=== PATIENT | male | born 1950 | race Caucasian/White ===

== ENCOUNTER → 2016-06-13 | Outpatient (REF) | payer MEDICARE, BC ==
[~2016-06-13] MED LIST: /ADVA50050 IN; /GLYB5TA OR; /MOXI40TA OR; /PANT40TA OR; /TIOT18INH INH; ACET65TA OR; ALBUTEROL INH; AZELASTINE; HYDR25TA6 OR; LASI40TA OR; LISI40TA OR; METF500T4 OR; PRED20TA OR; SIMV40TA2 OR
[2016-06-13 12:19] LABS: ALBUMIN 3.7 GM/DL (3.2-5.2); ALBUMIN/GLOBULIN RATIO 1.19 (1.00-1.93); ALKALINE PHOSPHATASE 83 U/L (45-117); ALT/SGPT 58 U/L (12-78); ANION GAP 11 MEQ/L (8-16); AST/SGOT 38 U/L (15-37); BILIRUBIN,TOTAL 0.4 MG/DL (0.2-1.0); BLOOD UREA NITROGEN 18 MG/DL (7-18); CALCIUM LEVEL 8.9 MG/DL (8.8-10.2); CARBON DIOXIDE LEVEL 25 MEQ/L (21-32); CHLORIDE LEVEL 107 MEQ/L (98-107); CHOLESTEROL LEVEL 114 MG/DL (<200); GLOMERULAR FILTRATION RATE > 60.0 (>49); GLUCOSE, FASTING 163 MG/DL (80-110); POTASSIUM SERUM 3.7 MEQ/L (3.5-5.1); SODIUM LEVEL 143 MEQ/L (136-145); TOTAL PROTEIN 6.8 GM/DL (6.4-8.2); TRIGLYCERIDES LEVEL 164 MG/DL (<150)
== END ==
LOC: M SFHCPLAZ 07:46
PROVIDERS: ATTEND Physician Assistant
DX: E11.65 Type 2 diabetes mellitus with hyperglycemia (principal); E78.4 Other hyperlipidemia; Z12.5 Encounter for screening for malignant neoplasm of prostate; E55.9 Vitamin D deficiency, unspecified
CPT/HCPCS: 36415; 80053; 80061; 82043; 82306; 83036; G0103

== ENCOUNTER → 2016-09-20 | Outpatient (REF) | payer MEDICARE, BC ==
[2016-09-20 11:25] LABS: ALBUMIN 3.9 GM/DL (3.2-5.2); ALBUMIN/GLOBULIN RATIO 1.34 (1.00-1.93); ALKALINE PHOSPHATASE 88 U/L (45-117); ALT/SGPT 72 U/L (12-78); ANION GAP 11 MEQ/L (8-16); AST/SGOT 59 U/L (15-37); BILIRUBIN,TOTAL 0.4 MG/DL (0.2-1.0); BLOOD UREA NITROGEN 23 MG/DL (7-18); CALCIUM LEVEL 9.7 MG/DL (8.8-10.2); CARBON DIOXIDE LEVEL 27 MEQ/L (21-32); CHLORIDE LEVEL 105 MEQ/L (98-107); CREATININE FOR GFR 1.13 MG/DL (0.70-1.30); GLOMERULAR FILTRATION RATE > 60.0 (>49); GLUCOSE, FASTING 172 MG/DL (80-110); SODIUM LEVEL 143 MEQ/L (136-145); TOTAL PROTEIN 6.8 GM/DL (6.4-8.2)
== END ==
LOC: M SFHCPLAZ 08:07
PROVIDERS: ATTEND Physician Assistant
DX: E11.65 Type 2 diabetes mellitus with hyperglycemia (principal)

== ENCOUNTER → 2017-04-11 | Outpatient (REF) | payer BC, MEDICARE, MEDICAID ==
[2017-04-11 13:06] LABS: MEAN CORPUSCULAR HGB CONC 32.4 g/dl (32.0-36.5); MEAN CORPUSCULAR VOLUME 86.3 fl (80.0-96.0); PLATELET COUNT, AUTOMATED 133 10^3/uL (150-450); RED CELL DISTRIBUTION WIDTH 13.7 % (11.5-14.5); WHITE BLOOD COUNT 6.6 10^3/uL (4.0-10.0)
[2017-04-11 13:43] LABS: ALBUMIN 3.9 GM/DL (3.2-5.2); ALBUMIN/GLOBULIN RATIO 1.22 (1.00-1.93); ALKALINE PHOSPHATASE 85 U/L (45-117); ALT/SGPT 64 U/L (12-78); ANION GAP 10 MEQ/L (8-16); AST/SGOT 62 U/L (7-37); BILIRUBIN,TOTAL 0.6 MG/DL (0.2-1.0); BLOOD UREA NITROGEN 13 MG/DL (7-18); CALCIUM LEVEL 8.7 MG/DL (8.8-10.2); CARBON DIOXIDE LEVEL 26 MEQ/L (21-32); CHLORIDE LEVEL 106 MEQ/L (98-107); CHOLESTEROL LEVEL 146 MG/DL (<200); CREATININE FOR GFR 1.05 MG/DL (0.70-1.30); FREE T4 1.01 NG/DL (0.76-1.46); GLOMERULAR FILTRATION RATE > 60.0 (>49); GLUCOSE, FASTING 207 MG/DL (80-110); SODIUM LEVEL 142 MEQ/L (136-145); TOTAL PROTEIN 7.1 GM/DL (6.4-8.2); TRIGLYCERIDES LEVEL 210 MG/DL (<150)
== END ==
LOC: M SFHCADAM 09:29
PROVIDERS: ATTEND Family Medicine
DX: E78.5 Hyperlipidemia, unspecified (principal); E11.65 Type 2 diabetes mellitus with hyperglycemia; J44.9 Chronic obstructive pulmonary disease, unspecified

== ENCOUNTER → 2017-08-02 | Outpatient (REF) | payer BC, MEDICARE, MEDICAID ==
[2017-08-02 21:18] LABS: ANION GAP 8 MEQ/L (8-16); BLOOD UREA NITROGEN 23 MG/DL (7-18); CALCIUM LEVEL 9.6 MG/DL (8.8-10.2); CARBON DIOXIDE LEVEL 25 MEQ/L (21-32); CHLORIDE LEVEL 109 MEQ/L (98-107); CREATININE FOR GFR 1.25 MG/DL (0.70-1.30); GLOMERULAR FILTRATION RATE > 60.0 (>49); GLUCOSE, FASTING 172 MG/DL (70-100); SODIUM LEVEL 142 MEQ/L (136-145)
[2017-08-02 21:53] LABS: ESTIMATED AVERAGE GLUCOSE 212 MG/DL (60-110)
== END ==
LOC: M SFHCADAM 20:35
DX: E11.65 Type 2 diabetes mellitus with hyperglycemia (principal)
CPT/HCPCS: 83036

== ENCOUNTER → 2017-11-14 | Outpatient (REF) | payer BC, MEDICARE, MEDICAID ==
[2017-11-14 13:07] LABS: ANION GAP 9 MEQ/L (8-16); BLOOD UREA NITROGEN 21 MG/DL (7-18); CALCIUM LEVEL 9.2 MG/DL (8.8-10.2); CARBON DIOXIDE LEVEL 24 MEQ/L (21-32); CHLORIDE LEVEL 107 MEQ/L (98-107); CREATININE FOR GFR 1.12 MG/DL (0.70-1.30); GLOMERULAR FILTRATION RATE > 60.0 (>49); GLUCOSE, FASTING 145 MG/DL (70-100); POTASSIUM SERUM 4.6 MEQ/L (3.5-5.1); SODIUM LEVEL 140 MEQ/L (136-145)
[2017-11-14 14:31] LABS: MALB URINE SIEMENS 17.4 MG/L
[2017-11-14 16:11] LABS: ESTIMATED AVERAGE GLUCOSE 174 MG/DL (60-110); HEMOGLOBIN A1c 7.7 %
== END ==
LOC: M SFHCADAM 09:34
DX: E11.65 Type 2 diabetes mellitus with hyperglycemia (principal)
CPT/HCPCS: 83036

== ENCOUNTER → 2018-04-23 | Outpatient (REF) | payer MEDICARE, MEDICAID ==
[2018-04-23 20:02] LABS: ALBUMIN 4.1 GM/DL (3.2-5.2); ALT/SGPT 40 U/L (12-78); BILIRUBIN,TOTAL 0.4 MG/DL (0.2-1.0); BLOOD UREA NITROGEN 23 MG/DL (7-18); CALCIUM LEVEL 9.3 MG/DL (8.8-10.2); CARBON DIOXIDE LEVEL 24 MEQ/L (21-32); CHLORIDE LEVEL 105 MEQ/L (98-107); CHOLESTEROL LEVEL 165 MG/DL (<200); CHOLESTEROL RISK RATIO 5.156 (<5); CREATININE FOR GFR 1.19 MG/DL (0.70-1.30); GLOMERULAR FILTRATION RATE > 60.0 (>49); GLUCOSE, FASTING 138 MG/DL (70-100); HDL CHOLESTEROL 32 MG/DL (>40); HEMATOCRIT 47.2 % (42.0-52.0); MEAN CORPUSCULAR HEMOGLOBIN 26.1 pg (27.0-33.0); MEAN CORPUSCULAR HGB CONC 31.8 g/dl (32.0-36.5); MEAN CORPUSCULAR VOLUME 82.2 fl (80.0-96.0); NON-HDL-C 133 MG/DL; PLATELET COUNT, AUTOMATED 190 10^3/uL (150-450); POTASSIUM SERUM 4.1 MEQ/L (3.5-5.1); RED BLOOD COUNT 5.74 10^6/uL (4.30-6.10); SODIUM LEVEL 140 MEQ/L (136-145); TOTAL PROTEIN 7.7 GM/DL (6.4-8.2); TRIGLYCERIDES LEVEL 538 MG/DL (<150); URIC ACID 4.6 MG/DL (3.5-7.2); WHITE BLOOD COUNT 8.8 10^3/uL (4.0-10.0)
[2018-04-23 20:20] LABS: MALB URINE SIEMENS 28.7 MG/L; MAU/CREAT RATIO 14.8 MCG/MG (0.0-30.0)
[2018-04-23 20:28] LABS: HEMOGLOBIN A1c 8.4 %
== END ==
LOC: M SFHCADAM 13:27
PROVIDERS: ATTEND Family Medicine
DX: J44.9 Chronic obstructive pulmonary disease, unspecified (principal); E11.65 Type 2 diabetes mellitus with hyperglycemia; E78.5 Hyperlipidemia, unspecified; M1A.9XX0 Chronic gout, unspecified, without tophus (tophi)

== ENCOUNTER → 2018-07-24 | Outpatient (REF) | payer MEDICARE, MEDICAID ==
[2018-07-24 13:51] LABS: HEMOGLOBIN A1c 8.1 %
[2018-07-24 13:56] LABS: BLOOD UREA NITROGEN 26 MG/DL (7-18); CALCIUM LEVEL 9.4 MG/DL (8.8-10.2); CARBON DIOXIDE LEVEL 23 MEQ/L (21-32); CHLORIDE LEVEL 107 MEQ/L (98-107); CREATININE FOR GFR 1.12 MG/DL (0.70-1.30); GLOMERULAR FILTRATION RATE > 60.0 (>49); GLUCOSE, FASTING 206 MG/DL (70-100); POTASSIUM SERUM 4.3 MEQ/L (3.5-5.1); SODIUM LEVEL 140 MEQ/L (136-145)
== END ==
LOC: M SFHCADAM 10:15
PROVIDERS: ATTEND Family Medicine
DX: E11.65 Type 2 diabetes mellitus with hyperglycemia (principal)

== ENCOUNTER 2018-10-28 09:52 | Inpatient (IN) | payer MEDICAID, MEDICARE ==
[~2018-10-28] VITALS: Ht 170.2 cm; Wt 133.4 kg
[2018-10-28] VITALS (9 sets, daily range): BP systolic 107–139; BP diastolic 53–80; O2SAT 83–94
[~2018-10-28 09:52] MED LIST changes: -/ADVA50050 IN; -/GLYB5TA OR; -/MOXI40TA OR; -/PANT40TA OR; -/TIOT18INH INH; +ADVA1AER2 IN; +AVEL1TAB2 OR; +GLYB1TAB29 OR; +PROT1TAB2 OR; +SPIR1CAP INH
[2018-10-28] MEDS ORDERED: VITAD1000T PO (10:19)
[2018-10-28] MEDS ORDERED: ZYLO300T6 PO ×2 (10:19→13:08)
[2018-10-28] MEDS ORDERED: JARD1TAB3 PO ×2 (10:19→13:08)
[2018-10-28] MEDS ORDERED: OMEP40CA2 PO (10:19)
[2018-10-28] MEDS ORDERED: ASPI81TA85 PO ×2 (10:19→13:08)
[2018-10-28] MEDS ORDERED: FENO48TA2 PO ×2 (10:19→13:08)
[2018-10-28 10:27] LABS: BASO % 0.2 % (0.0-1.0); EOS % 0.3 % (0.0-3.0); HEMATOCRIT 47.7 % (42.0-52.0); HEMOGLOBIN 15.5 g/dl (13.5-17.5); LYMPH # 0.7 10^3/uL (1.5-4.5); LYMPH % 4.5 % (24.0-44.0); MEAN CORPUSCULAR HEMOGLOBIN 26.9 pg (27.0-33.0); MEAN CORPUSCULAR HGB CONC 32.5 g/dl (32.0-36.5); MEAN CORPUSCULAR VOLUME 82.8 fl (80.0-96.0); MONO # 1.3 10^3/uL (0.0-0.8); MONO % 8.8 % (0.0-5.0); NEUTROPHILS # 12.4 10^3/uL (1.8-7.7); NEUTROPHILS % 85.5 % (36.0-66.0); PLATELET COUNT, AUTOMATED 156 10^3/uL (150-450); RED BLOOD COUNT 5.76 10^6/uL (4.30-6.10); WHITE BLOOD COUNT 14.5 10^3/uL (4.0-10.0)
[2018-10-28 10:44] LABS: INR 0.94; PARTIAL THROMBOPLASTIN TIME 26.8 SECONDS (25.0-38.4); PROTHROMBIN TIME 12.3 SECONDS (11.8-14.0)
--- NOTE | 2018-10-28 11:04 | REP ---
Clinical: Acute chest pain. Comparison: 06/11/2015. Findings: Mediastinum and cardiac silhouette are stable. Lung rosen demonstrate chronic-appearing interstitial changes similar to prior examination. Trace left basilar atelectasis cannot be excluded. No focal consolidation. No obvious effusion. No pneumothorax. Skeletal structures intact. Impression: Chronic stable changes. Cannot exclude subtle left basilar atelectasis. Electronically Signed by Eloy Mackay MD 10/28/2018 10:55 A
[2018-10-28 11:08] LABS: BLOOD UREA NITROGEN 18 MG/DL (7-18); CALCIUM LEVEL 9.8 MG/DL (8.8-10.2); CARBON DIOXIDE LEVEL 23 MEQ/L (21-32); CHLORIDE LEVEL 103 MEQ/L (98-107); CK-MB VALUE MASS 1.6 NG/ML (<3.6); CPK CREATINE PHOSPHOKINASE 102 U/L (39-308); CREATININE FOR GFR 1.23 MG/DL (0.70-1.30); FREE T4 0.98 NG/DL (0.76-1.46); GLOMERULAR FILTRATION RATE > 60.0 (>49); GLUCOSE, FASTING 267 MG/DL (70-100); MAGNESIUM LEVEL 1.6 MG/DL (1.8-2.4); MB/CK RELATIVE INDEX 1.57 (< OR =4); NT-PRO BNP 149 PG/ML (<125); POTASSIUM SERUM 3.8 MEQ/L (3.5-5.1); SODIUM LEVEL 138 MEQ/L (136-145); TROPONIN I < 0.02 NG/ML (< 0.10)
[2018-10-28] MEDS ORDERED: diltiaZEM 125 MG in NS 100 ML IV SCH (13:00)
[2018-10-28] MEDS ORDERED: VENTAER INH (13:08)
[2018-10-28] MEDS ORDERED: FURO40TA2 PO (13:08)
[2018-10-28] MEDS ORDERED: LISI40TA PO (13:08)
[2018-10-28] MEDS ORDERED: INCR1INH INH (13:08)
[2018-10-28] MEDS ORDERED: ADV500INH INH (13:08)
[2018-10-28] MEDS ORDERED: SIMV40TA2 PO (13:08)
[2018-10-28] MEDS ORDERED: METF500T4 PO (13:08)
[2018-10-28] MEDS ORDERED: OMEP-218 PO (13:08)
[2018-10-28] MEDS ORDERED: EXCETAB33 PO (13:08)
[2018-10-28] MEDS ORDERED: GLYB5TA PO (13:08)
[2018-10-28] MEDS ORDERED: VITA-144 PO (13:10)
[2018-10-28] MEDS ORDERED: ACETAMINOPHEN TAB 650MG DOSE (2X325MG) PO PRN (14:15)
[2018-10-28] MEDS ORDERED: ONDANSETRON 4MG/2ML VIAL (J2405) IV PRN (14:15)
[2018-10-28] MEDS ORDERED: GLUCOSE 4 GM CHEW TABLET PO PRN (14:15)
[2018-10-28] MEDS ORDERED: GLUCAGON FOR INJ 1 MG VIAL (J1610) SC PRN (14:15)
[2018-10-28] MEDS ORDERED: DEXTROSE 50% 50 ML SYRINGE IV PRN (14:15)
[2018-10-28] MEDS: METOPROLOL TART 25 MG TABLET PO SCH ×2 (14:38→20:02)
[2018-10-28] MEDS: diltiaZEM 125 MG in NS 100 ML IV SCH (15:00)
[2018-10-28] MEDS: HumaLOG INSULIN (NovoLOG) PER UNIT SC SCH ×2 (17:50→20:05)
--- NOTE | 2018-10-28 19:54 | HPEPDOC ---
General Date of Admission Oct 28, 2018 at 13:56 Date of Service: Oct 28, 2018 Primary Care Physician: Kin Bruner MD Chief Complaint The patient is a 67-year-old male admitted with a reason for visit of New Onset Atrial Fibrillation. Source: Patient, Family Exam Limitations: Hard of hearing Timing/Duration: Day(s) Severity: Moderate Associated Symptoms: Denies Symptoms History of Present Illness This is a 67-year-old male with a history of multiple chronic medical problems. The patient notes that he hasn't had a cough over the past 3 days. It is a type of cough he has never had in the past. He also notes that when standing he became short of breath. He went to his healthcare educator office where he was found to be in atrial fibrillation with rapid ventricular response. The patient denies any sensation of palpitations. He denies dizziness, chest pain, nausea or vomiting. Home Medications Scheduled Allopurinol (Zyloprim) 300 Mg Tablet, 300 MG PO QPM, (Reported) Aspirin (Aspir 81) 81 Mg Tablet.dr, 81 MG PO DAILY, (Reported) Cholecalciferol (Vitamin D3) (Vitamin D3) 1,000 Unit Tablet, 1,000 UNIT PO BID, (Reported) Empagliflozin (Jardiance) 25 Mg Tablet, 25 MG PO DAILY, (Reported) Fenofibrate Nanocrystallized (Fenofibrate) 48 Mg Tablet, 48 MG PO DAILY, (Reported) Furosemide (Furosemide) 40 Mg Tablet, 40 MG PO DAILY, (Reported) Glyburide (Glyburide) 5 Mg Tablet, 10 MG PO BID, (Reported) Lisinopril (Lisinopril) 40 Mg Tablet, 40 MG PO DAILY, (Reported) Metformin HCl (Metformin HCl ER) 500 Mg Tab.er.24h, 1,000 MG PO BID, (Reported) Omeprazole (Omeprazole) 20 Mg Capsule.dr, 20 MG PO DAILY, (Reported) Salmeterol/Fluticasone (Advair 500-50 Diskus) 1 Each Blst.w.dev, 1 PUFF INH BID, (Reported) Simvastatin (Simvastatin) 40 Mg Tablet, 40 MG PO QPM, (Reported) Umeclidinium Geraldine (Incruse Ellipta) 62.5 Mcg Blst.w.dev, 1 PUFF INH DAILY, (Reported) Scheduled PRN Albuterol Sulfate (Ventolin Hfa) 18 Gm Hfa.aer.ad, 2 PUFF INH Q4H PRN for SHORTNESS OF BREATH, (Reported) Aspirin/Acetaminophen/Caffeine (Excedrin Migraine Caplet) 1 Each Tablet, 2 TAB PO DAILY PRN for HEADACHE, (Reported) Allergies Coded Allergies: No Known Drug Allergies (Verified Allergy, Unknown, 10/28/18) Past Medical History Medical History Past medical history includes chronic respiratory failure due to oxygen dependent COPD. He uses O2 at 2 L/m during the day and 4 L/m at night. Obstructive sleep apnea for which she sees with CPAP, chronic cor pulmonale, polycythemia, vitamin D deficiency, gout, jer-pkueyrb-gwgeitald diabetes mellitus, dyslipidemia Surgical History The patient denies any surgical history Family History There is paternal history of COPD Social History * Smoker: former Smoker (the patient's tobacco use is been removed for 19 years) Alcohol: sober (the patient's alcohol use is. 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 His primary care provider is Dr. Bruner. His healthcare educator is Dr. Bhagat. His CODE STATUS is DNR. 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 A-FIB/CHADSVASC A-FIB History Current/History of A-Fib/PAF?: Yes Current PO Anticoag Therapy: No Age/Risk Factor Scoring CHADSVASC: CHADSVASC Response (Comments) Value Age Risk Factor Age 65-74 years old 1 Gender Risk Factor Male 0 Hx of CHF Yes 1 Hx of HTN Yes 1 Hx of Stroke/TIA/or VTE No 0 Hx of Diabetes No 0 Hx of Vascular Disease No 0 Total 3 Treatment Treatment ordered: NONE (awaiting completion of workup) Reason Anticoagulant not given: Other (awaiting full completion of workup) Other reason anticoagulant not: awaiting evaluation and completion of workup Review of Systems Constitutional: Denies: Chills, Fever, Malaise, Night Sweats, Weakness, Fatigue, Weight Loss, Lethargy, Other Eyes: Denies: Pain, Vision change, Conjunctivae inflammation, Eyelid inflamma tion, Redness, Other ENT: Denies: Head Aches, Ear Pain, Dysphagia, Sinus Congestion, Post Nasal Drip, Sore Throat, Epistaxis, Other Symptoms Skin: Denies: Rash, Lesions, Jaundice, Bruising, Itching, Dry, Breakdown, Nail Changes, Other Pulmonary: Reports: Dyspnea, Cough Cardiovascular: Denies: Chest Pain, Palpitations, Orthopnea, Paroxysmal Noc. Dyspnea, Edema, Lt Headedness, Other Symptoms Gastrointestinal: Denies: Nausea, Vomiting, Abdominal Pain, Diarrhea, Constipation, Melena, Hematochezia, Other Symptoms Genitourinary: Denies: Dysuria, Frequency, Incontinence, Hematuria, Retention, Other Symptoms Hematologic: Denies: Bruising, Bleeding Excessively, Petecchia, Purpura, Enlarged Lymph Nodes, Other Hematologic Endocrine: Denies: Polydipsia, Polyphagia, Polyuria, Heat Intolerance, Cold Intolerance, Other Endocrine Sx Musculoskeletal: Denies: Neck Pain, Back Pain, Shoulder Pain, Arm Pain, Hand Pain, Leg Pain, Foot Pain, Joint Pain, Muscle Pain, Spasms, Other Symptoms Neurological: Denies: Weakness, Numbness, Incoordination, Change in speech, Confusion, Seizures, Other Symptoms Psych: Reports: Mood Normal Physical Examination General Exam: Positive: Alert, No Acute Distress Eye Exam: Positive: PERRLA, Conjunctiva & lids normal ENT Exam: Positive: Atraumatic, Mucous membr. moist/pink, Pharynx Normal, Tongue Midline Neck Exam: Positive: Supple; Negative: JVD, thyromegaly, +2 carotid pulse wo bruit, Lymphadenopathy, Other Chest Exam: Positive: Clear to auscultation; Negative: Normal air movement, Rales, Rhonchi, Wheezing, Diminished, Other Heart Exam: Positive: Irregular Rhythm, Normal S1, Normal S2 Abdomen Exam: Positive: Normal bowel sounds, Soft, Other (morbid central obesity) Extremity Exam: Positive: Normal pulses; Negative: Clubbing, Cyanosis, Edema, Tenderness, Swelling, Other Skin Exam: Positive: Nl turgor and temperature, Other skin issue (the patient appears to have some psoriasis-type plaque lesions to his hairline and scalp) Neuro Exam: Positive: Normal Gait, Normal Speech, Strength at 5/5 X4 ext, Cranial Nerves 3-12 NL Psych Exam: Positive: Mental status NL, Mood NL Vital Signs Vital Signs Date Time Temp Pulse Resp B/P (MAP) Pulse Ox O2 Delivery O2 Flow Rate FiO2 10/28/18 18:00 101 35 91 3.0 10/28/18 17:43 115/72 (86) 10/28/18 16:17 99.2 10/28/18 16:15 Nasal Cannula Laboratory Data Labs 24H Laboratory Tests 2 10/28/18 10:10: Immature Granulocyte % (Auto) 0.7, White Blood Count 14.5H, Red Blood Count 5.76, Hemoglobin 15.5, Hematocrit 47.7, Mean Corpuscular Volume 82.8, Mean Corpuscular Hemoglobin 26.9L, Mean Corpuscular Hemoglobin Concent 32.5, Red Cell Distribution Width 16.3H, Platelet Count 156, Neutrophils (%) (Auto) 85.5H, Lymphocytes (%) (Auto) 4.5L, Monocytes (%) (Auto) 8.8H, Eosinophils (%) (Auto) 0.3, Basophils (%) (Auto) 0.2, Neutrophils # (Auto) 12.4H, Lymphocytes # (Auto) 0.7L, Monocytes # (Auto) 1.3H, Eosinophils # (Auto) 0.0, Basophils # (Auto) 0.0, Nucleated Red Blood Cells % (auto) 0.0, Prothrombin Time 12.3, Prothromb Time International Ratio 0.94, Activated Partial Thromboplast Time 26.8, Anion Gap 12, Glomerular Filtration Rate > 60.0, Blood Urea Nitrogen 18, Creatinine 1.23, Sodium Level 138, Potassium Level 3.8, Chloride Level 103, Carbon Dioxide Level 23, Calcium Level 9.8, Total Creatine Kinase 102, Magnesium Level 1.6L, Creatine Kinase MB 1.6, Creatine Kinase MB Relative Index 1.57, Troponin I < 0.02, ER-Hrb-M-Type Natriuretic Peptide 149H, Thyroid Stimulating Hormone (TSH) 1.960, Free Thyroxine 0.98 10/28/18 17:38: Bedside Glucose (Misc Panel) 165H CBC/BMP Laboratory Tests 10/28/18 10:10 Red Blood Count 5.76, Mean Corpuscular Volume 82.8, Mean Corpuscular Hemoglobin 26.9 L, Mean Corpuscular Hemoglobin Concent 32.5, Red Cell Distribution Width 16.3 H, Neutrophils (%) (Auto) 85.5 H, Lymphocytes (%) (Auto) 4.5 L, Monocytes (%) (Auto) 8.8 H, Eosinophils (%) (Auto) 0.3, Basophils (%) (Auto) 0.2, Neutrophils # (Auto) 12.4 H, Lymphocytes # (Auto) 0.7 L, Monocytes # (Auto) 1.3 H, Eosinophils # (Auto) 0.0, Basophils # (Auto) 0.0, Calcium Level 9.8, Total Creatine Kinase 102 Problems (1) New onset atrial fibrillation Status: Acute Response to Treatment: Stable Problem Specific Plan: Monitor Clinically, Repeat Labs Plan / VTE VTE Prophylaxis Ordered?: Yes Plan Diet: Continue Current Activity: Continue Current Medications: Other Med: (the patient has been placed on a diltiazem drip with titration parameters) Respiratory: Other Respiratory (patient will continue with his baseline FiO2 2 L/m. He will also make use of his home CPAP.) Diagnostics: Repeat Labs in AM (we will also monitor troponins to make sure this is not associated with an acute cardiac event.), EKG, TTE Anticipated Discharge: Home AMAYA SUN MD Oct 28, 2018 19:54
[2018-10-28] MEDS: ALLOPURINOL 300 MG TAB PO SCH (20:01)
[2018-10-28] MEDS: SIMVASTATIN 40 MG TAB PO SCH (20:01)
[2018-10-28] MEDS: HEPARIN SOD (PORCINE) 5000 UNITS/ML VIAL SQ SCH (21:07)
[2018-10-28] MEDS: ADVAIR HFA 230/21MCG INHALER INH SCH (23:53)
[2018-10-29] VITALS (10 sets, daily range): BP systolic 82–140; BP diastolic 55–86; O2SAT 86–93
[2018-10-29] MEDS: diltiaZEM 125 MG in NS 100 ML IV SCH (00:23)
[2018-10-29] MEDS: HEPARIN SOD (PORCINE) 5000 UNITS/ML VIAL SQ SCH ×3 (05:04→19:53)
[2018-10-29 05:19] LABS: HEMATOCRIT 42.6 % (42.0-52.0); MEAN CORPUSCULAR HEMOGLOBIN 26.4 pg (27.0-33.0); MEAN CORPUSCULAR HGB CONC 31.7 g/dl (32.0-36.5); MEAN CORPUSCULAR VOLUME 83.2 fl (80.0-96.0); PLATELET COUNT, AUTOMATED 150 10^3/uL (150-450); RED BLOOD COUNT 5.12 10^6/uL (4.30-6.10); WHITE BLOOD COUNT 11.2 10^3/uL (4.0-10.0)
[2018-10-29 05:23] LABS: HEMOGLOBIN 13.5 g/dl (13.5-17.5)
[2018-10-29 05:29] LABS: INR 1.03; PROTHROMBIN TIME 13.2 SECONDS (11.8-14.0)
[2018-10-29 05:50] LABS: BLOOD UREA NITROGEN 19 MG/DL (7-18); CALCIUM LEVEL 8.9 MG/DL (8.8-10.2); CARBON DIOXIDE LEVEL 23 MEQ/L (21-32); CHLORIDE LEVEL 105 MEQ/L (98-107); CREATININE FOR GFR 1.23 MG/DL (0.70-1.30); GLOMERULAR FILTRATION RATE > 60.0 (>49); GLUCOSE, FASTING 190 MG/DL (70-100); POTASSIUM SERUM 3.7 MEQ/L (3.5-5.1); SODIUM LEVEL 137 MEQ/L (136-145); TROPONIN I < 0.02 NG/ML (< 0.10)
[2018-10-29] MEDS: HumaLOG INSULIN (NovoLOG) PER UNIT SC SCH ×4 (07:19→19:52)
[2018-10-29] MEDS: METOPROLOL TART 25 MG TABLET PO SCH ×2 (08:22→19:51)
[2018-10-29] MEDS: TIOTROPIUM INHALER/CAPSULE (SPIRIVA) INH SCH (08:44)
[2018-10-29] MEDS: ADVAIR HFA 230/21MCG INHALER INH SCH ×2 (08:44→20:04)
[2018-10-29] MEDS ORDERED: PANTOPRAZOLE 40MG TAB (PROTONIX) PO SCH (09:00)
[2018-10-29] MEDS ORDERED: LISINOPRIL 40 MG TAB PO SCH (09:00)
[2018-10-29] MEDS ORDERED: ASPIRIN 81 MG ENTERIC TAB PO SCH (09:00)
[2018-10-29] MEDS ORDERED: FENOFIBRATE 48 MG TAB (TRICOR) PO SCH (09:00)
[2018-10-29] MEDS ORDERED: FUROSEMIDE 40 MG TAB PO SCH (09:00)
--- NOTE | 2018-10-29 11:36 | IPNPDOC ---
Text Note Date of Service The patient was seen on 10/29/18. NOTE Pt was seen and examined at bedside. Pt is in no acute distress. Sitting in bed ready to undergo for 2DEcho. Pt states he has COPD f/u with Dr. Bhagat as outpt. Denies any increased bronchial secretions. Denies any wheezing. Pt does complain of dizziness and lightheaded ness when changes his position. PHE: General Exam: Positive: Alert, No Acute Distress Eye Exam: Positive: PERRLA, Conjunctiva & lids normal ENT Exam: Positive: Atraumatic, Mucous membr. moist/pink, Pharynx Normal, Tongue Midline Neck Exam: Positive: Supple; Negative: JVD, thyromegaly, +2 carotid pulse wo bruit, Lymphadenopathy, Other Chest Exam: Positive: Clear to auscultation; Negative: Normal air movement, Rales, Rhonchi, Wheezing, Diminished, Other Heart Exam: Positive: Irregular Rhythm, Normal S1, Normal S2 Abdomen Exam: Positive: Normal bowel sounds, Soft, Other (morbid central obesity) Extremity Exam: Positive: Normal pulses; Negative: Clubbing, Cyanosis, Edema, Tenderness, Swelling, Other Skin Exam: Positive: Nl turgor and temperature, Other skin issue (the patient appears to have some psoriasis-type plaque lesions to his hairline and scalp) Neuro Exam: Positive: Normal Gait, Normal Speech, Strength at 5/5 X4 ext, Cranial Nerves 3-12 NL Psych Exam: Positive: Mental status NL, Mood NL Vital Signs Date Time Temp Pulse Resp B/P (MAP) Pulse Ox O2 Delivery O2 Flow Rate FiO2 10/29/18 08:22 117 140/86 10/29/18 08:00 99.3 106 24 140/86 (104) 89 2.0 10/29/18 08:00 2.0 10/29/18 05:00 90 BIPAP/CPAP 4.0 10/29/18 05:00 109 22 132/68 (89) 90 4.0 10/29/18 04:00 4.0 10/29/18 04:00 89 BIPAP/CPAP 4.0 10/29/18 04:00 97.2 99 26 89 4.0 10/29/18 03:00 89 23 106/55 (72) 88 4.0 10/29/18 03:00 88 BIPAP/CPAP 4.0 10/29/18 02:00 86 BIPAP/CPAP 4.0 10/29/18 02:00 90 28 111/59 (76) 87 4.0 10/29/18 01:00 96 26 112/66 (81) 86 4.0 10/29/18 01:00 89 BIPAP/CPAP 4.0 10/29/18 00:23 105 107/53 10/29/18 00:00 97.9 93 25 82/56 (65) 88 4.0 10/29/18 00:00 93 BIPAP/CPAP 4.0 10/29/18 00:00 4.0 10/28/18 23:00 88 BIPAP/CPAP 4.0 10/28/18 23:00 102 107/53 (71) 89 4.0 10/28/18 22:00 88 BIPAP/CPAP 4.0 10/28/18 22:00 102 122/53 (76) 90 4.0 10/28/18 21:00 94 BIPAP/CPAP 4.0 10/28/18 21:00 101 119/61 (80) 92 4.0 10/28/18 20:02 121 139/71 10/28/18 20:00 3.0 10/28/18 20:00 98.4 107 28 109/71 (84) 89 3.0 10/28/18 20:00 90 Nasal Cannula 3.0 10/28/18 19:00 113 139/71 (93) 89 3.0 10/28/18 19:00 83 Nasal Cannula 3.0 10/28/18 18:00 101 35 91 3.0 10/28/18 17:43 109 32 115/72 (86) 90 3.0 10/28/18 16:17 99.2 114 34 118/63 (81) 92 3.0 10/28/18 16:15 93 Nasal Cannula 3.0 10/28/18 16:15 3.0 10/28/18 16:00 105 36 122/80 (94) 89 3.0 10/28/18 16:00 105 122/80 (94) 90 Nasal Cannula 3.0 10/28/18 15:46 91 113/79 (90) 90 Nasal Cannula 3.0 10/28/18 15:30 123 105/64 (78) 89 Nasal Cannula 3.0 10/28/18 14:38 141 123/56 10/28/18 14:22 99.2 121 89 Nasal Cannula 3.0 10/28/18 14:16 134/61 (85) 10/28/18 14:07 133 89 Nasal Cannula 3.0 10/28/18 13:52 138 90 Nasal Cannula 3.0 10/28/18 13:46 159/83 (108) 10/28/18 13:37 144 89 Nasal Cannula 3.0 10/28/18 13:22 138 89 Nasal Cannula 3.0 10/28/18 13:17 143 108/58 10/28/18 13:15 108/58 (75) 10/28/18 13:07 134 89 Nasal Cannula 3.0 10/28/18 13:00 136/78 (97) 10/28/18 12:52 134 89 Nasal Cannula 3.0 10/28/18 12:45 131/86 (101) 10/28/18 12:37 132 89 Nasal Cannula 3.0 10/28/18 12:31 122/85 (97) 10/28/18 12:22 133 89 Nasal Cannula 3.0 10/28/18 12:07 131 88 Nasal Cannula 3.0 10/28/18 12:00 133/78 (96) 10/28/18 11:54 144 150/66 10/28/18 11:52 142 90 Nasal Cannula 3.0 10/28/18 11:45 150/66 (94) 10/28/18 11:37 148 89 Nasal Cannula 3.0 10/28/18 11:30 148/62 (90) Intake & Output 10/29/18 06:00 Intake Total 1118 ml Output Total 1225 ml Balance -107 ml Laboratory Tests 10/28/18 17:38: Bedside Glucose (Misc Panel) 165H 10/28/18 20:04: Bedside Glucose (Misc Panel) 203H 10/29/18 05:02: White Blood Count 11.2H, Red Blood Count 5.12, Hemoglobin 13.5#, Hematocrit 42.6, Mean Corpuscular Volume 83.2, Mean Corpuscular Hemoglobin 26.4L, Mean Cor puscular Hemoglobin Concent 31.7L, Red Cell Distribution Width 15.9H, Platelet Count 150, Nucleated Red Blood Cells % (auto) 0.0, Prothrombin Time 13.2, Prothromb Time International Ratio 1.03, Blood Urea Nitrogen 19H, Creatinine 1.23, Sodium Level 137, Potassium Level 3.7, Chloride Level 105, Carbon Dioxide Level 23, Calcium Level 8.9, Anion Gap 9, Glomerular Filtration Rate > 60.0, Fasting Glucose 190H, Troponin I < 0.02 Current Medications Medications (Trade) Dose Ordered Sig/Fátima Route PRN Reason Start Time Stop Time Status Last Admin Dose Admin Allopurinol (Zyloprim) 300 mg QPM PO 10/28/18 21:00 10/28/18 20:01 300 MG Aspirin (Ecotrin) 81 mg DAILY PO 10/29/18 09:00 10/29/18 08:22 81 MG Diltiazem HCl 125 mg/Sodium Chloride 125 ml @ 15 mls/hr Q8H20M IV 10/28/18 15:00 Future Hold 10/29/18 00:23 15 MLS/HR Fenofibrate (Tricor) 48 mg DAILY PO 10/29/18 09:00 10/29/18 08:22 48 MG Furosemide (Lasix) 40 mg DAILY PO 10/29/18 09:00 10/29/18 08:22 40 MG Heparin Sodium (Porcine) (Heparin) 5,000 units Q8H SQ 10/28/18 22:00 10/29/18 05:04 5,000 UNITS Insulin Human Lispro (HumaLOG INSULIN) See Protocol Table AC SC 10/28/18 17:30 10/29/18 07:19 4 UNITS Lisinopril (Prinivil) 40 mg DAILY PO 10/29/18 09:00 10/29/18 08:22 40 MG Metoprolol Tartrate (Lopressor) 25 mg BID PO 10/28/18 14:30 10/29/18 08:22 25 MG Pantoprazole Sodium (Protonix) 40 mg DAILY PO 10/29/18 09:00 10/29/18 08:23 40 MG Salmeterol Xinafoate/ Fluticasone (Advair Hfa 230/ 21) 2 puff BID INH 10/28/18 21:00 10/29/18 08:44 2 PUFF Simvastatin (Zocor) 40 mg QPM PO 10/28/18 21:00 10/28/18 20:01 40 MG Tiotropium [place] (Spiriva Handihaler) 1 inhalation DAILY@08 INH 10/29/18 08:00 10/29/18 08:44 1 INHALATION A/P 1-Acute hypoxic respiratory failure possible sec to pulmonary edema in view of new onset a fib with RVR improved Cont NC for O2 Sat ~ 90% Cont loop diuretics 2-Atrial fibrillation with RVR Pt currently on cardizem drip with last HR 100-110 Titrate off drip today Cont close telemonitoring Add po Cardizem for HR>110 Cont metoprolol Pending 2DEcho Based on Echo finding will risk stratify to start on anticoagulation 3- Hx of COPD stable Cont bronchodilators Discharge: Anticipate discharge in 1-2 days pending control of tachycardia and Echo result. VS,Fishbone, I+O VS, Fishbone, I+O Laboratory Tests 10/29/18 05:02 Red Blood Count 5.12, Mean Corpuscular Volume 83.2, Mean Corpuscular Hemoglobin 26.4 L, Mean Corpuscular Hemoglobin Concent 31.7 L, Red Cell Distribution Width 15.9 H, Calcium Level 8.9 Vital Signs Date Time Temp Pulse Resp B/P (MAP) Pulse Ox O2 Delivery O2 Flow Rate FiO2 10/29/18 08:22 117 140/86 10/29/18 08:00 99.3 24 89 2.0 10/29/18 05:00 BIPAP/CPAP I&O- Last 24 Hours up to 6 AM 10/29/18 06:00 Intake Total 1118 ml Output Total 1225 ml Balance -107 ml OMERO LOVING MD Oct 29, 2018 11:36
[2018-10-29] MEDS ORDERED: IPRATROPIUM 0.5MG/ALBUTEROL 2.5MG INH SOL UD 3ML (DUONEB)(J7620) NEB SCH (12:00)
[2018-10-29] MEDS: LEVEMIR (INSULIN DETEMIR) 1 UNITS/0.01ML SC SCH ×2 (12:09→19:50)
[2018-10-29] MEDS: IPRATROPIUM 0.02% SOLN 0.5MG/2.5 ML NEB INH SCH ×2 (14:00→20:00)
[2018-10-29] MEDS ORDERED: LEVALBUTEROL 1.25 MG/0.5 ML CONCENTRATE NEB INH PRN (14:45)
--- NOTE | 2018-10-29 18:33 | ECHO ---
DATE OF PROCEDURE: 10/29/2018 AGE: 67 GENDER: Male HEIGHT: 67 inches WEIGHT: 297 pounds BODY SURFACE AREA: 2.39 m2 PATIENT LOCATION: Inpatient, ICU, room 3207 REFERRING PHYSICIAN: Stephanie Ramírez MD INDICATION: New onset atrial fibrillation? 2-D MEASUREMENTS: RV: 4.6 cm LV: 5.2 cm Septum: 1.2 cm Posterior wall: 1.2 cm Aortic root: 3.8 cm LA: 4.5 cm LVEF: 65% DOPPLER MEASUREMENTS: AV: 1.4 m/s LVOT: 1.1 m/s LVOT diameter: 2.0 cm MV-E: 58, A: 67, EA ratio: 0.9 Early mitral deceleration time: 187 ms E prime: 9.6, A prime 8, E/E prime ratio: 6 PCWP: 10.3 mmHg PV: 0.9 m/s Pulmonary artery acceleration time: 90 ms PASP: 41 mmHg COMMENTS: Normal sinus rhythm without intraventricular conduction disturbance. Premature atrial contractions (PACs). . Technically difficult study in light of the patient's body habitus but diagnostically useful information was still obtained. M-mode and two-dimensional echocardiography was performed with pulsed, continuous wave, color flow and tissue Doppler studies. Borderline concentric left ventricle hypertrophy with normal wall motion. Mildly dilated left atrium with impairment of LV diastolic function but currently normal estimated mean left atrial pressure. Mildly dilated right heart chambers with normal wall motion and Doppler evidence of at least moderate pulmonary hypertension. Unable to visualize his inferior vena cava to further estimate his central venous pressure. Normal appearing and functioning valvular structures. Aortic root upper limits of normal. No apparent intracardiac mass or pericardial effusion.
[2018-10-29] MEDS: ALLOPURINOL 300 MG TAB PO SCH (19:51)
[2018-10-29] MEDS: SIMVASTATIN 40 MG TAB PO SCH (19:51)
[2018-10-30] VITALS: BP 133/78
[2018-10-30] MEDS: IPRATROPIUM 0.02% SOLN 0.5MG/2.5 ML NEB INH SCH ×2 (02:00→08:00)
[2018-10-30 04:00] VITALS: BP 132/60
[2018-10-30 04:30] LABS: INR 1.05; PROTHROMBIN TIME 13.4 SECONDS (11.8-14.0)
[2018-10-30 04:55] VITALS: BP 132/74
[2018-10-30] MEDS: HEPARIN SOD (PORCINE) 5000 UNITS/ML VIAL SQ SCH (04:56)
[2018-10-30] MEDS: HumaLOG INSULIN (NovoLOG) PER UNIT SC SCH (07:19)
[2018-10-30 08:00] VITALS: BP 120/59
[2018-10-30] MEDS: ADVAIR HFA 230/21MCG INHALER INH SCH (08:11)
[2018-10-30] MEDS: TIOTROPIUM INHALER/CAPSULE (SPIRIVA) INH SCH (08:13)
[2018-10-30] MEDS ORDERED: DILT30TA PO (09:38)
[2018-10-30] MEDS ORDERED: ELIQ5TAB PO (09:40)
[2018-10-30] MEDS ORDERED: LEVA45AE INH (09:41)
--- NOTE | 2018-10-31 05:43 | ECGEPIP ---
[facility] - ED Test Date: 2018-10-28 Pat Name: CARIE MARTINO Department: Room: - Gender: Male [place]: BEKAH : 1950 Requested By: Viet Sun Order Number: [id number] Reading MD: Viet Mo Measurements Intervals Crocker Rate: 129 P: HI: -1 QRS: 88 QRSD: 89 T: 40 QT: 294 QTc: 432 Interpretive Statements ATRIAL FIBRILLATION WITH RAPID VENTRICULAR RESPONSE LOW QRS VOLTAGE IN PRECORDIAL LEADS INCOMPLETE RIGHT BUNDLE BRANCH BLOCK NO PRIORS FOR COMPARISON Electronically Signed on 10-31-2018 5:43:49 EDT by Viet Mo
== END 2018-10-30 10:05 | disposition home or self-care (01) | DRG 308 ==
LOC: M ED 09:52 → M ED INP 13:56 → M ICU 16:10
PROVIDERS: ADMIT Internal Medicine; ATTEND Internal Medicine
DX: I48.91 Unspecified atrial fibrillation (principal); J96.21 Acute and chronic respiratory failure with hypoxia; J44.9 Chronic obstructive pulmonary disease, unspecified; E11.9 Type 2 diabetes mellitus without complications; I27.81 Cor pulmonale (chronic); Z79.899 Other long term (current) drug therapy; Z79.82 Long term (current) use of aspirin; Z87.891 Personal history of nicotine dependence; G47.33 Obstructive sleep apnea (adult) (pediatric); E55.9 Vitamin D deficiency, unspecified; M10.9 Gout, unspecified; E78.5 Hyperlipidemia, unspecified; Z99.81 Dependence on supplemental oxygen

== ENCOUNTER → 2018-12-23 | Outpatient (REF) | payer MEDICARE ==
[~2018-12-23] MED LIST changes: +ADV500INH INH; +ASPI81TA85 PO; +DILT30TA PO; +ELIQ5TAB PO; +EXCETAB33 PO; +FENO48TA2 PO; +FURO40TA2 PO; +GLYB5TA PO; +INCR1INH INH; +JARD1TAB3 PO; +LEVA45AE INH; +LISI40TA PO; +METF500T4 PO; +OMEP-218 PO; +OMEP40CA2 PO; +SIMV40TA2 PO; +VENTAER INH; +VITA-144 PO; +VITAD1000T PO; +ZYLO300T6 PO
== END ==
LOC: M LAB REF 19:33
PROVIDERS: ATTEND Internal Medicine Pulmonary Disease
DX: J44.9 Chronic obstructive pulmonary disease, unspecified (principal)

== ENCOUNTER → 2019-03-06 | Outpatient (REF) | payer MEDICARE ==
[~2019-03-06] MED LIST changes: +CHOL100029 PO; +FENO48TA13 PO; -FENO48TA2 PO; +METF-791 PO; -METF500T4 PO; -OMEP40CA2 PO; +OMEP40CA97 PO; -VITAD1000T PO
[2019-03-06 12:49] LABS: ALBUMIN 3.8 GM/DL (3.2-5.2); ALT/SGPT 25 U/L (12-78); BILIRUBIN,TOTAL 0.4 MG/DL (0.2-1.0); BLOOD UREA NITROGEN 28 MG/DL (7-18); CALCIUM LEVEL 9.5 MG/DL (8.8-10.2); CARBON DIOXIDE LEVEL 23 MEQ/L (21-32); CHLORIDE LEVEL 105 MEQ/L (98-107); CHOLESTEROL LEVEL 167 MG/DL (<200); CHOLESTEROL RISK RATIO 4.073 (<5); CREATININE FOR GFR 1.25 MG/DL (0.70-1.30); GLOMERULAR FILTRATION RATE > 60.0 (>49); GLUCOSE, FASTING 281 MG/DL (70-100); HDL CHOLESTEROL 41 MG/DL (>40); LDL CHOLESTEROL 55 MG/DL (<100); NON-HDL-C 126 MG/DL; POTASSIUM SERUM 4.7 MEQ/L (3.5-5.1); SODIUM LEVEL 137 MEQ/L (136-145); TOTAL PROTEIN 6.8 GM/DL (6.4-8.2); TRIGLYCERIDES LEVEL 356 MG/DL (<150)
[2019-03-06 14:14] LABS: HEMOGLOBIN A1c 9.5 %
== END ==
LOC: M SFHCADAM 09:53
PROVIDERS: ATTEND Family Medicine
DX: E11.65 Type 2 diabetes mellitus with hyperglycemia (principal); E78.49 Other hyperlipidemia